=== PATIENT | male | born 1955 | race Caucasian/White ===

== ENCOUNTER → 2016-07-30 | Outpatient (CLI) | payer BC ==
[~2016-07-30] MED LIST: ASPI81TA28 PO; ATOR-22 PO; CLC100 PO; CLOP1TAB15 PO; METO50TA7 PO; MULT-506 PO; NTRGSL/4 UT; OXYC7.5T62 PO
--- NOTE | 2016-07-30 16:59 | DIAGNOSTIC IMAGING REPORT ---
MRI OF THE LUMBAR SPINE WITHOUT IV CONTRAST CLINICAL HISTORY: Low back pain. Recent fall. COMPARISON STUDY: Radiographs of the lumbar spine dated 05/25/2016. TECHNIQUE: MRI of the lumbar spine is performed utilizing various T1 and T2-weighted sequences in the axial and sagittal planes. IV contrast was not administered for this examination. FINDINGS: Lumbar spine: There is a mild superior endplate compression deformity of L3. There is mild marrow edema, and this is likely subacute as this was also seen on the 05/25/2016 examination. Vertebral body height is otherwise maintained throughout the lumbar spine. Marrow signal intensity is mildly heterogeneous. Alignment is preserved. There is straightening of the lumbar lordosis. The transverse and spinous processes are intact as imaged. There is no evidence of spondylolysis. A large hemangioma is noted in the body of L5. Chronic degenerative endplate change is seen at L2-L3, L4-L5, and L5-S1. Small anterior osteophytes are seen throughout. Intervertebral discs: Degenerative disc desiccation is seen throughout the lumbar spine. There is moderate to advanced loss of height at L5-S1. Only mild narrowing is seen at the remaining lumbar levels. Spinal cord: The visualized spinal cord is normal in morphology and signal intensity. The conus medullaris terminates at the level of L1. The nerve roots of the cauda equina are normal in morphology. L1-L2: Unremarkable. L2-L3: Unremarkable. L3-L4: There is minimal facet arthropathy of no consequence. The central canal and neural foramina are widely patent. L4-L5: There is minimal facet arthropathy of no consequence. The central canal and neural foramina are widely patent. L5-S1: There is minimal posterior disc bulge eccentric to the right. There is only minimal acquired compromise of the central canal at this level. The minimum AP diameter measures 8 mm. There is mild right-sided subarticular stenosis. The disc bulge abuts the transiting right S1 nerve root. Facet arthropathy causes minimal bilateral neural foraminal stenosis. Sacrum: Visualized sacrum is normal in morphology and signal intensity. A small hemangioma is noted in S3. Soft tissues: The paraspinous soft tissues are normal in appearance. There are two lesions suspected arising from the left kidney. IMPRESSION: 1. There is a mild superior endplate compression deformity of L3, likely subacute. Mild marrow edema is seen. No retropulsed fragments are identified. 2. There is no disc herniation or high-grade central canal stenosis. 3. A posterior disc bulge eccentric to the right at L5-S1 likely abuts the transiting right S1 nerve root. Mild spondylotic change is seen at additional levels. See above discussion for detailed level by level analysis. 4. There are two solid mass lesions suspected arising from the left kidney. Follow-up with a contrast-enhanced renal mass protocol abdominal CT is recommended for further assessment. Neoplasm is to be excluded. Dictated: 07/30/2016 4:19 PM Transcribed: 07/30/2016 4:58 PM [email or web address] Electronically signed by: John Anthony M.D. 07/30/2016 5:01 PM Dictated Date/Time: 07/30/2016 4:19 PM
== END | disposition home or self-care (01) ==
LOC: C.MRIBC 15:21
PROVIDERS: ATTEND Family Medicine
DX: M54.5 Low back pain (principal); W18.30XA Fall on same level, unspecified, initial encounter; S32.030A Wedge compression fracture of third lumbar vertebra, initial encounter for closed fracture; X58.XXXA Exposure to other specified factors, initial encounter

== ENCOUNTER → 2016-08-07 | Outpatient (CLI) | payer BC ==
[~2016-08-07] MED LIST changes: +OPTIRAY 320 IV PRN
--- NOTE | 2016-08-07 12:17 | DIAGNOSTIC IMAGING REPORT ---
CT KIDNEY (ABDOMEN) COMBO CLINICAL HISTORY: LEFT RENAL MASSES abnormal ultrasound TECHNIQUE: Transaxial acquisition with multi axial reformatted images. Study is performed in dynamic fashion pre and post intravenous contrast administration COMPARISON STUDY: MRI lumbar spine dated 07/30/2016 FINDINGS: 2 masses arising from the left kidney. Posterior to the superior pole is a mass measuring 3.5 x 4.0 cm. Hounsfield unit characteristics suggests significant postcontrast enhancement. His behavior is at variance with a surrounding renal parenchyma. There are no cystic components. At the lateral aspect of the interpolar aspect of the left kidney is a 2.8 cm exophytic mass. Density characteristics unenhanced demonstrate Hounsfield unit measurements of 40. This increases to 75-80 on the delayed images. There appear to be several enhancing internal septations and/or nodules. Kidneys otherwise demonstrate uniform enhancement characteristics. Renal arteries and renal veins are patent bilaterally. The adrenal glands are unremarkable. Liver enhances uniformly. Lung bases are clear. The bowel pattern within the abdomen nonobstructive throughout. There is no significant abdominal adenopathy. There is mild atherosclerotic change abdominal aorta as well as proximal iliac arterial vasculature. Lung bases again are clear. Liver enhances uniformly. Pancreas is unremarkable. The osseous structures show mild degenerative change. No lytic or blastic component is appreciated. IMPRESSION: 1. Enhancing masses of the upper and mid pole left kidney. 2. These are well circumscribed and measure 4 cm at maximum in reference to the superior pole lesion in 2.8 cm at the interpolar region. 3. Renal neoplastic changes at both sites is the diagnosis of exclusion. 4. Study is otherwise negative. Electronically signed by: Daniel Ndiaye M.D. 08/07/2016 12:16 PM Dictated Date/Time: 08/07/2016 12:09 PM
== END | disposition home or self-care (01) ==
LOC: C.CTS 11:36
PROVIDERS: ATTEND Family Medicine
DX: N28.89 Other specified disorders of kidney and ureter (principal); M54.5 Low back pain

== ENCOUNTER → 2016-08-14 | Outpatient (CLI) | payer BC ==
[~2016-08-14] MED LIST changes: -OPTIRAY 320 IV PRN
== END | disposition home or self-care (01) ==
LOC: C.LABSPEC 15:28
PROVIDERS: ATTEND Urology
DX: N28.89 Other specified disorders of kidney and ureter (principal)

== ENCOUNTER 2016-08-24 06:47 | Inpatient (IN) | payer BC ==
[2016-08-17 08:47] VITALS: BMI 32.0
--- NOTE | 2016-08-17 09:18 | PAT Medication Instructions ---
Service Date Aug 17, 2016. Current Home Medication List Aspirin (Aspirin Ec), 81 MG PO QAM Atorvastatin (Lipitor), 20 MG PO HS Clopidogrel (Plavix), 75 MG PO QAM Metoprolol Succ (Toprol Xl) (Toprol-Xl), 50 MG PO QAM Multivitamin (Multivitamin), 1 TAB PO PRN Nitroglycerin (Nitrostat), 0.4 MG UT PRN Medication Instructions For Your Scheduled Surgery - Check with surgeon/Dr. Perales for instructions: Aspirin (Aspirin Ec), 81 MG PO QAM Clopidogrel (Plavix), 75 MG PO QAM - Hold the following medications the morning of surgery: Multivitamin (Multivitamin), 1 TAB PO PRN - Take the following medications the morning of surgery with a sip of water: Nitroglycerin (Nitrostat), 0.4 MG UT PRN Metoprolol Succ (Toprol Xl) (Toprol-Xl), 50 MG PO QAM - Take the following medications as scheduled the night before surgery: Nitroglycerin (Nitrostat), 0.4 MG UT PRN Atorvastatin (Lipitor), 20 MG PO HS If you have any questions please call us at [phone] (Nallely Do PA-C) or [phone] or [phone]
--- NOTE | 2016-08-17 10:00 | DIAGNOSTIC IMAGING REPORT ---
CHEST PREADMISSION(PA/LAT) HISTORY: Preop. COMPARISON: Chest 09/23/2011. FINDINGS: The lungs are clear. Cardiac silhouette is normal in size. No pleural effusions. No pneumothorax. IMPRESSION: No acute process. Electronically signed by: Sung Del Toro M.D. 08/17/2016 9:58 AM Dictated Date/Time: 08/17/2016 9:57 AM
[2016-08-17 10:19] LABS: BASO % 0.9 %; BASO ABS # 0.05 K/uL (0-0.2); COMPLETE YES; EOS % 4.4 %; HEMATOCRIT 44.8 % (42-52); IG% 0.2 %; LYMPH % 20.6 %; LYMPH ABS # 1.11 K/uL (1.2-3.4); MEAN CELL VOLUME 87.7 fL (80-100); MEAN CORPUSCULAR HEMOGLOBIN 30.7 pg (25-34); MEAN PLATELET VOLUME 10.8 fL (7.4-10.4); MONO % 10.9 %; PLATELET COUNT 186 K/uL (130-400); RED BLOOD COUNT 5.11 M/uL (4.7-6.1)
[2016-08-17 10:35] LABS: BUN/CREATININE RATIO 20.9 (10-20); CALCIUM 9.2 mg/dl (8.5-10.1); CREATININE 0.85 mg/dl (0.60-1.40); POTASSIUM 4.7 mmol/L (3.5-5.1)
[2016-08-17 10:39] LABS: PROSTATE SPECIFIC ANTIGEN 1.97 ng/ml (0.000-4.000)
[~2016-08-24] VITALS: Ht 182.9 cm; Wt 106.0 kg
[2016-08-24] VITALS (13 sets, daily range): BP systolic 126–153; BP diastolic 58–84; PULSE 54–75; TEMP 36.5–36.8; O2SAT 93–99; Ht 182.9 cm; Wt 106.0 kg
[~2016-08-24 06:47] MED LIST changes: +CEFAZOLIN 2000 MG/60 ML D5W IV SCH; -CLC100 PO; +LACTATED RINGER'S 1000ML 1,000 ML IV SCH; -OXYC7.5T62 PO
[2016-08-24] MEDS ORDERED: BUPIVACAINE 0.5 % 5 MG/1 ML MPF 30ML VIAL ONE (07:50)
--- NOTE | 2016-08-24 08:00 | History & Physical Bridge Note ---
H&P Re-Evaluation Bridge Note: I have examined the patient, reviewed the History & Physical and in the interval since the performance of the History & Physical I have noted the following changes of clinical significance: No changes noted
[2016-08-24] MEDS ORDERED: EpHEDrine SULFATE INJ 50 MG/ML AMP ONE (08:19)
[2016-08-24] MEDS ORDERED: PHENYLEPHRINE HCL INJ 10 MG/ML VIAL ONE (08:19)
[2016-08-24] MEDS ORDERED: LIDOCAINE HCL 2% 2 ML VIAL (20MG/ML) ONE (08:19)
[2016-08-24] MEDS ORDERED: DEXAMETHASONE SOD INJ 4 MG/ML VIAL ONE ×2 (08:19→11:44)
[2016-08-24] MEDS ORDERED: SUCCINYLCHOLINE CHLORIDE 20 MG/ML 10 ML VIAL IV ONE (08:19)
[2016-08-24] MEDS ORDERED: ONDANSETRON INJ 2 MG/ML 2 ML VIAL ONE ×2 (08:19→11:44)
[2016-08-24] MEDS ORDERED: GLYCOPYRROLATE INJ 0.2 MG/ML VIAL ONE (08:20)
[2016-08-24] MEDS ORDERED: PROPOFOL IV EMULSION 10 MG/ML 20 ML VIAL IV ONE (08:20)
[2016-08-24] MEDS ORDERED: MIDAZOLAM HCL 1 MG/ML 2ML VIAL ONE (08:20)
[2016-08-24] MEDS ORDERED: NEOSTIGMINE METHYLSULFATE 5 MG/5 ML SYR ONE (08:20)
[2016-08-24] MEDS ORDERED: FENTANYL CITRATE INJ 50 MCG/1 ML 2 ML VIAL ONE (08:20)
[2016-08-24] MEDS ORDERED: ROCURONIUM BROMIDE 10 MG/ML 5 ML VIAL ONE ×2 (08:20→11:44)
[2016-08-24] MEDS ORDERED: LABETALOL HCL IV 5 MG/ML 20ML IV PRN ×2 (08:30→09:45)
[2016-08-24] MEDS ORDERED: MEPERIDINE HCL 25 MG/ML CARP IV PRN ×2 (08:30→09:45)
[2016-08-24] MEDS ORDERED: ONDANSETRON INJ 2 MG/ML 2 ML VIAL IV PRN ×2 (08:30→09:45)
[2016-08-24] MEDS ORDERED: ATROPINE SULFATE 0.1 MG/ML 5ML SYR IV PRN ×2 (08:30→09:45)
[2016-08-24] MEDS ORDERED: EpHEDrine SULFATE INJ 50 MG/ML AMP IV PRN ×2 (08:30→09:45)
[2016-08-24] MEDS ORDERED: HYDROmorphone INJ 1 MG/ML SYR IV PRN ×2 (08:30→09:45)
[2016-08-24] MEDS ORDERED: HYDROmorphone INJ 2 MG/ML SYR/VIAL ONE (09:28)
[2016-08-24] MEDS ORDERED: FENTANYL CITRATE INJ 50 MCG/1 ML 2 ML VIAL IV PRN (09:45)
[2016-08-24] MEDS ORDERED: ACETAMINOPHEN 1000 MG/100 ML IV IV ONE (10:02)
--- NOTE | 2016-08-24 11:34 | [facility] Post Operative Brief Note ---
Immediate Operative Summary Operative Date Aug 24, 2016. Pre-Operative Diagnosis Left Renal Masses x 2 Post-Operative Diagnosis Left Renal Masses x 2 Procedure(s) Performed Left Laparoscopic Hand-assisted Nephrectomy, Hilar Lymph Node Dissection Surgeon Dr. Chris Alexander Booth Operator Surgeon(s) Heaven Brooks-PAC Estimated Blood Loss 250 ML Findings Excellent hemostasis, single renal artery and vein Specimens A:Left kidney and ureter B:Hilar Mirtha Tissue Drains Romeo to gravity Anesthesia GAET + local Complication(s) None Disposition Recovery Room / PACU
[2016-08-24 11:59] LABS: HEMATOCRIT 37.2 % (42-52); MEAN CELL VOLUME 86.7 fL (80-100); MEAN CORPUSCULAR HEMOGLOBIN 30.3 pg (25-34); MEAN PLATELET VOLUME 10.6 fL (7.4-10.4); PLATELET COUNT 158 K/uL (130-400); RED BLOOD COUNT 4.29 M/uL (4.7-6.1); WHITE BLOOD COUNT 10.94 K/uL (4.8-10.8)
[2016-08-24] MEDS: FENTANYL CITRATE INJ 50 MCG/1 ML 2 ML VIAL IV PRN ×2 (12:00→12:05)
[2016-08-24 12:06] LABS: MEAN CORPUSCULAR HGB CONC 34.9 g/dl (32-36)
--- NOTE | 2016-08-24 12:22 | Anesthesiology Progress Note ---
Anesthesia Post Op Note Date & Time Aug 24, 2016 at 12:20 Vital Signs Pain Intensity: 4 Vital Signs Past 12 Hours Date Time Temp Pulse Resp B/P Pulse Ox O2 Delivery O2 Flow Rate FiO2 08/24/16 12:10 59 14 129/68 97 Nasal Cannula 2 08/24/16 12:00 64 14 135/72 100 Nasal Cannula 2 08/24/16 11:50 68 14 135/72 100 Mask 10 08/24/16 11:40 80 14 140/78 100 Mask 10 08/24/16 11:31 36.4 85 14 141/76 99 Mask 10 08/24/16 07:45 36.8 75 18 150/84 96 Room Air Notes Mental Status: alert / awake / arousable, participated in evaluation Pt Amnestic to Procedure: Yes Nausea / Vomiting: adequately controlled Pain: adequately controlled Airway Patency, RR, SpO2: stable & adequate BP & HR: stable & adequate Hydration State: stable & adequate Anesthetic Complications: no major complications apparent
[2016-08-24 13:22] LABS: BUN/CREATININE RATIO 16.4 (10-20); CALCIUM 7.8 mg/dl (8.5-10.1); CREATININE 0.89 mg/dl (0.60-1.40); POTASSIUM 4.1 mmol/L (3.5-5.1)
[2016-08-24] MEDS: HYDROmorphone INJ 1 MG/ML SYR IV PRN ×2 (13:54→17:38)
[2016-08-24] MEDS: LACTATED RINGER'S 1000ML 1,000 ML IV SCH ×2 (13:54→20:49)
--- NOTE | 2016-08-24 13:58 | OPERATIVE REPORT ---
DATE OF OPERATION: 08/24/2016 PREOPERATIVE DIAGNOSIS: Left renal masses x2. POSTOPERATIVE DIAGNOSIS: Same. PROCEDURE: Left-sided hand assisted laparoscopic radical nephrectomy and hilar lymph node dissection. SURGEON: Dr. Chris Alexander. SALES TEAM RECRUITER: None. ANESTHESIA: General anesthesia with endotracheal intubation plus local at port sites. COMPLICATIONS: None. SPECIMENS SENT TO PATHOLOGY: Left kidney plus proximal ureter, left hilar brando tissue. DRAINS LEFT IN PLACE: Include a Romeo catheter to gravity drainage. ESTIMATED BLOOD LOSS: 250 mL. IV FLUIDS: 3500 mL of crystalloid. FINDINGS: Excellent hemostasis after completion of case, single renal artery and vein with normal intraabdominal anatomy saved for some right retroperitoneal inflammation. COMPLICATIONS: None. BRIEF HISTORY: Mr. Gabriel is a 61-year-old male who underwent a lumbar MRI after a fall several months ago for which he had persistent pain. This demonstrated an incidentally found left-sided renal mass x2, both suspicious for an enhancing solid renal mass; therefore renal cell carcinoma. He underwent a duplicated renal CT scan which confirmed findings. I have seen him as an outpatient in consultation and after discussion of risks and benefits of various forms of intervention, he has decided upon a hand-assisted laparoscopic radical nephrectomy to manage his disease. Please see H\T\P for further details. SCDs used for DVT prophylaxis and Ancef 2 grams were provided intravenously for preoperative coverage. The patient has remained on low dose aspirin per his cardiology recommendations and the increased risk of bleeding associated with this surgery has been also reviewed seeing his ongoing antiplatelet therapy. OPERATION AND FINDINGS: PROCEDURE: The patient was properly identified and brought to the operative suite. After identification and appropriate consent on the chart, general anesthesia with endotracheal intubation was initiated and the patient was prepped and draped in standard fashion for this procedure. night time babysitter-out procedure was followed. All port sites were anesthetized with local prior to incision. The patient was placed in a gentle left flank up position with flexion on the table and all pressure points well padded. Pa incision was made in the left lower quadrant and brought down through the subcutaneous tissues to the fascia of the external oblique. This was sharply divided and abdomen was entered using cold Metzenbaum scissors with no evidence of any injury to the intraabdominal structures. Incision was enlarged sufficiently to allow for passage of the surgeon's finger and hand port was placed. The abdomen was insufflated to 15 mmHg and abdomen was inspected. There was some retroperitoneal and colonic inflammation, no worrisome intra-abdominal findings were noted. Two 12 mm ports were placed in the midclavicular line and the colon was released along the white line of Toldt. Lateral attachments of the spleen were also released to allow for mobilization to the retroperitoneum and the kidney. The psoas muscle was identified and the ureter was dissected free over the level of the psoas. Using lateral traction on the kidney medial dissection was carried out up to the level of a single renal artery and vein, both of which were palpated prior to clearing. After they were identified the artery and vein were taken using 2 separate staple loads. Lateral attachments of the kidney were divided using Harmonic scalpel. The staple loads were used at the level of the adrenal attachments to free the kidney. After this was complete, the ureter was double clipped and divided. Remaining caudad attachments were taken using a staple load. The kidney was removed and sent for pathologic analysis. Abdomen was reinspected and excellent hemostasis was appreciated. Attention was turned to the level of the hilum where a single stump for the renal artery and vein were noted. Some residual hilar fatty lymphoid tissue at the level of the aorta was visualized. This was dissected free from the aorta using clips and Harmonic as well as a staple loads were necessary. Renal artery was retaken where it traversed this tissue. After this was complete, the hilum at the level of the aorta was cleaned with no residual significant tissue. This was sent as hilar brando tissue for separate pathologic analysis. Attention was again turned to the surgical field, which was noted to have excellent hemostasis. A coating of Tisseel tissue sealant was placed over the spleen, adrenal bed, hilum and the area of the ureteral dissection. The intra-abdominal pressure had been reduced significantly prior to completion of this dissection with excellent hemostasis being noted. Colon and spleen were returned to their normal anatomic position. Ports and hand port were removed. Excess carbon dioxide gas was removed from the abdomen and the 12 mm incisions were closed using 0 Vicryl on a UR-6 in interrupted fashion. Hand port incision was closed in 2 phases after removal of flexion including 0 Vicryl suture on the deep tissues of the abdominal wall and a #1 running Vicryl suture on the fascia of the external oblique. Subcutaneous tissues were reapproximated using 3-0 Vicryl and skin incisions were closed using 4-0 Monocryl and Dermabond dressing. Anesthesia was reversed. The patient was transferred to recovery room in stable condition. FOLLOW-UP CARE: The patient will be admitted to the floor for standard postoperative management. I attest to the content of the Intraoperative Record and any orders documented therein. Any exceptions are noted below. ANTOINETTED
[2016-08-24] MEDS: OXYCODONE/ACETAMINOPHEN 7.5-325 TAB PO PRN ×2 (14:01→19:23)
[2016-08-24 14:23] LABS: INR 1.1 (0.9-1.1); PROTHROMBIN TIME (PATIENT) 11.4 SECONDS (9.0-12.0)
--- NOTE | 2016-08-24 15:48 | CARDIOLOGY CONSULTATION ---
DATE OF CONSULTATION: 08/24/2016 TIME: 15:12 p.m. CONSULTING PHYSICIAN: Dr. Chris Alexander. REASON FOR CONSULTATION: Prior myocardial infarction, on aspirin and Plavix. PRIMARY STATION AIR TRAFFIC CONTROL SPECIALIST: Dr. Ramez Pearles. HISTORY OF PRESENT ILLNESS: Mr. Gabriel is a pleasant 61-year-old gentleman with a history significant for LAD myocardial infarction in 2004 status post PCI and dyslipidemia. He presented for elective left nephrectomy for renal mass and is currently postop day #0. His angina in November 2004 was described as a chest tightness with diaphoresis. He stayed at home over the weekend before seeking medical care which eventually led to PCI of his LAD in [facility] in [place] in November of 2004. He has not had any further angina since his myocardial infarction. That was also the last cardiac catheterization that he has undergone. He has not had angina, syncope, near syncope, palpitations, orthopnea, PND, shortness of breath, edema, or bleeding such as melena, hematochezia or hematuria. He admits that he does not take aspirin on a daily basis but rather periodically. He is compliant with Plavix on a daily basis. As for the aspirin, he tries to avoid daily usage due to his history of Crohn disease, which has not required treatment. He has been holding Plavix for the past 7 days. He did take aspirin this morning, however. REVIEW OF SYSTEMS: As above and also admits to some abdominal discomfort postoperatively. Review of systems is otherwise negative. PAST MEDICAL HISTORY: 1. LAD VT November 2004, status post PCI. 2. Crohn's. 3. Dyslipidemia. 4. Seasonal affective disorder. 5. Left renal mass, pathology pending. HOME MEDICATIONS: Include: 1. Plavix 75 mg daily. 2. Aspirin 81 mg daily, however, he takes it intermittently. 3. Metoprolol succinate 50 mg daily. 4. Atorvastatin 20 mg at bedtime. 5. Multivitamin. 6. Nitroglycerin as needed. INPATIENT MEDICATIONS: Include cefazolin 2 grams IV q. 8 hours, heparin 5000 units subQ q. 12 hours. ALLERGIES: No known drug allergies. SOCIAL HISTORY: Quit smoking in 2004. Occasional alcohol. No drugs. He is . One child. He is accompanied in his hospital room. FAMILY HISTORY: Father at the age of 49 with myocardial infarction. PHYSICAL EXAMINATION: VITAL SIGNS: Temperature 36.5 degrees, heart rate 56 beats per minute, respiration rate 20, blood pressure 136/61 mmHg, oxygen saturation 99% on 2 liters per nasal cannula. Weight 106 kg. GENERAL: No acute distress. He is alert and oriented. HEENT: Anicteric sclerae. NECK: No appreciable JVD. Bilateral carotid bruits versus radiation of cardiac murmur. Normal carotid upstrokes bilaterally. CARDIAC: PMI nondisplaced. There was no ventricular heave, regular, normal S1, S2, 1/6 early peaking systolic ejection murmur best heard at the right upper sternal border. No rubs or gallops. LUNGS: Clear to auscultation bilaterally without wheezes, rales or rhonchi. ABDOMEN: Soft, nondistended. Mild tenderness. Hypoactive bowel sounds. Surgical wounds noted. No bleeding noted. No erythema. EXTREMITIES: No cyanosis or edema. 2+ radial pulses bilaterally. 2+ dorsalis pedis pulses bilaterally. PSYCHIATRIC: Affect appears appropriate. LABORATORY DATA: White blood cell count is 10.9, hemoglobin 13, Sodium 144, potassium 4.1, BUN 15, creatinine 0.89, calcium 7.8. INR 1.1. IMAGING DATA: Chest x-ray from 08/17/2016 without acute process, as per radiology. ECG 08/17/2016 personally reviewed. Sinus rhythm at 61 beats per minute. Possible anterior infarct. Inferior infarct. Outpatient chart reviewed. Telemetry was also personally reviewed. No arrhythmias. ASSESSMENT AND PLAN: 1. Coronary artery disease status post percutaneous coronary intervention: He had a left anterior descending artery myocardial infarction in 2004 and underwent left anterior descending artery percutaneous coronary intervention. No further angina since that time. He denies heart failure symptoms. As per Dr. Perales's outpatient recommendations, would continue aspirin 81 mg daily throughout the perioperative period. Resume Plavix 75 mg daily when safe from a surgical/bleeding standpoint. Continue statin therapy. Consider high intensity statin therapy. Continue beta refugio as tolerated. His home dose of metoprolol will be ordered to begin tomorrow. 2. Dyslipidemia: Continue statin therapy. Consider high intensity statin therapy given his history of coronary artery disease. 3. Carotid bruit: He does have the carotid bruit which could also be radiation of his cardiac murmur. This can be worked up as an outpatient. 4. Systolic murmur: He has an early peaking systolic ejection murmur which could represent aortic sclerosis or at most mild aortic stenosis, based on exam findings. This can be worked up as an outpatient as appropriate by Dr. Perales, his primary auto vinyl top installer. 5. Disposition: Dr. Perales will resume his cardiology care tomorrow. We will continue aspirin 81 mg daily as noted above. Please call for any other questions or concerns. Thank you for allowing me to participate in care of Mr. Gabriel. JEANETTE
[2016-08-24] MEDS ORDERED: NURSING VERBAL MED ORDER ONE (16:30)
[2016-08-24] MEDS: CEFAZOLIN IV 2,000 MG in DEXTROSE 5% 50ML 50 ML IV SCH (16:35)
[2016-08-24] MEDS ORDERED: SODIUM CHLORIDE 0.9% 500ML 500 ML IV ONE (16:45)
[2016-08-24] MEDS: HEPARIN SOD 5000 UNIT/0.5 ML CARP SQ SCH (19:39)
[2016-08-24] MEDS: ONDANSETRON INJ 2 MG/ML 2 ML VIAL IV PRN (20:41)
[2016-08-24] MEDS: ACETAMINOPHEN IV 100 ML IV PRN (20:41)
[2016-08-24] MEDS: DOCUSATE SODIUM 100 MG CAP PO SCH (20:42)
[2016-08-25 03:15] VITALS: BP 108/58; PULSE 62; TEMP 36.7; O2SAT 98
[2016-08-25] MEDS: ONDANSETRON INJ 2 MG/ML 2 ML VIAL IV PRN (03:56)
[2016-08-25 04:00] VITALS: O2SAT 95
[2016-08-25] MEDS: HYDROmorphone INJ 1 MG/ML SYR IV PRN ×5 (04:01→23:05)
[2016-08-25] MEDS: ACETAMINOPHEN IV 100 ML IV PRN (05:48)
[2016-08-25 05:56] LABS: BASO % 0.1 %; BASO ABS # 0.01 K/uL (0-0.2); COMPLETE YES; HEMATOCRIT 37.4 % (42-52); IG% 0.2 %; LYMPH ABS # 0.75 K/uL (1.2-3.4); MEAN CELL VOLUME 87.4 fL (80-100); MEAN CORPUSCULAR HEMOGLOBIN 29.7 pg (25-34); MEAN PLATELET VOLUME 10.5 fL (7.4-10.4); MONO % 13.8 %; NEUT % 78.9 %; PLATELET COUNT 165 K/uL (130-400); RED BLOOD COUNT 4.28 M/uL (4.7-6.1); WHITE BLOOD COUNT 10.72 K/uL (4.8-10.8)
[2016-08-25 06:24] LABS: BUN/CREATININE RATIO 11.3 (10-20); CALCIUM 7.6 mg/dl (8.5-10.1); CREATININE 1.4 mg/dl (0.60-1.40); POTASSIUM 4.2 mmol/L (3.5-5.1)
[2016-08-25 07:52] VITALS: BP 128/63; PULSE 68; TEMP 36.5; O2SAT 97
--- NOTE | 2016-08-25 07:57 | Anesthesiology Progress Note ---
Anesthesia Post Op Note Date & Time Aug 25, 2016 at 07:55 Vital Signs Pain Intensity: 5.0 Vital Signs Past 12 Hours Date Time Temp Pulse Resp B/P Pulse Ox O2 Delivery O2 Flow Rate FiO2 08/25/16 07:52 36.5 68 18 128/63 97 08/25/16 04:00 95 Room Air 2.0 08/25/16 03:15 36.7 62 18 108/58 98 Nasal Cannula 2.0 08/24/16 23:59 95 Room Air 2.0 08/24/16 23:15 36.7 66 18 126/58 98 Nasal Cannula 2.0 08/24/16 21:00 36.7 57 18 126/58 94 Room Air 08/24/16 20:00 95 Room Air 2.0 Notes Mental Status: alert / awake / arousable, participated in evaluation Pt Amnestic to Procedure: Yes Nausea / Vomiting: adequately controlled Pain: adequately controlled Airway Patency, RR, SpO2: stable & adequate BP & HR: stable & adequate Hydration State: stable & adequate Neuraxial Anesthesia: sensory block resolved Anesthetic Complications: no major complications apparent
[2016-08-25] MEDS: HEPARIN SOD 5000 UNIT/0.5 ML CARP SQ SCH ×2 (07:58→19:47)
[2016-08-25] MEDS: CEFAZOLIN IV 2,000 MG in DEXTROSE 5% 50ML 50 ML IV SCH ×3 (07:59)
[2016-08-25] MEDS: LACTATED RINGER'S 1000ML 1,000 ML IV SCH ×2 (07:59→17:05)
[2016-08-25] MEDS: DOCUSATE SODIUM 100 MG CAP PO SCH ×2 (08:00→19:45)
[2016-08-25] MEDS: ASPIRIN 81 MG ECTAB PO SCH (08:01)
[2016-08-25] MEDS: METOPROLOL SUCC 50MG EXT REL TAB PO SCH (08:01)
--- NOTE | 2016-08-25 08:43 | Progress Note ---
Subjective Date of Service: Aug 25, 2016. Subjective Pt evaluation today including: conversation w/ patient, physical exam, chart review, lab review, review of inpatient medication list Pain: Controlled with meds PO Intake: Mikie clears Voiding: crowell catheter in place (urine clear) 61 yo male POD#1 s/p L HALN for renal masses x 2. He denies OOB yet, mikie clears , no flatus yet. Pain controlled, acceptable downwards drift of Hb, expected bump in Cr noted. Remains on ASA and heparin SQ. Review of Systems Constitutional: No chills, No fever Eyes: No worsening of vision ENT: No hearing loss, No nasal symptoms Respiratory: No shortness of breath, No sputum, No wheezing Cardiac: No chest pain Abdomen: + pain, No nausea, No vomiting Male : No hematuria Neurologic: No memory loss, No paralysis Psychiatric: No depression symptoms Heme: No night sweats Skin: No new/changing skin lesions Objective Vital Signs Date Time Temp Pulse Resp B/P Pulse Ox O2 Delivery O2 Flow Rate FiO2 08/25/16 07:52 36.5 68 18 128/63 97 08/25/16 04:00 95 Room Air 2.0 08/25/16 03:15 36.7 62 18 108/58 98 Nasal Cannula 2.0 08/24/16 23:59 95 Room Air 2.0 08/24/16 23:15 36.7 66 18 126/58 98 Nasal Cannula 2.0 08/24/16 21:00 36.7 57 18 126/58 94 Room Air 08/24/16 20:00 95 Room Air 2.0 08/24/16 16:00 95 Room Air 2.0 08/24/16 15:26 36.5 61 16 132/60 95 Room Air 08/24/16 14:30 36.5 56 20 136/61 99 Nasal Cannula 2.0 08/24/16 14:00 36.5 57 20 141/67 99 Nasal Cannula 2.0 08/24/16 13:30 36.5 54 20 148/67 99 Nasal Cannula 2.0 08/24/16 13:00 36.5 54 20 153/70 93 Nasal Cannula 2.0 08/24/16 12:49 36.5 56 20 127/68 97 Nasal Cannula 2.0 08/24/16 12:45 36.5 55 20 127/68 95 Nasal Cannula 2.0 08/24/16 12:30 36.1 54 14 130/67 98 Nasal Cannula 2 08/24/16 12:20 36.1 55 14 130/69 97 Nasal Cannula 2 08/24/16 12:10 59 14 129/68 97 Nasal Cannula 2 08/24/16 12:00 64 14 135/72 100 Nasal Cannula 2 08/24/16 11:50 68 14 135/72 100 Mask 10 08/24/16 11:40 80 14 140/78 100 Mask 10 08/24/16 11:31 36.4 85 14 141/76 99 Mask 10 Physical Exam General Appearance: WD/WN, no apparent distress ENT: hearing grossly normal Neck: supple, no adenopathy Respiratory/Chest: no respiratory distress, no accessory muscle use Cardiovascular: no JVD Abdomen: non tender, soft, + pertinent finding (inc c/d/i with dermabond) Extremities: non-tender Neurologic/Psychiatric: alert, oriented x 3 Skin: normal color Laboratory Results Last 24 Hours Test 08/24/16 11:50 08/24/16 14:01 08/25/16 05:39 White Blood Count 10.94 K/uL 10.72 K/uL Red Blood Count 4.29 M/uL 4.28 M/uL Hemoglobin 13.0 g/dL 12.7 g/dL Hematocrit 37.2 % 37.4 % Mean Corpuscular Volume 86.7 fL 87.4 fL Mean Corpuscular Hemoglobin 30.3 pg 29.7 pg Mean Corpuscular Hemoglobin Concent 34.9 g/dl 34.0 g/dl RDW Standard Deviation 39.8 fL 40.2 fL RDW Coefficient of Variation 12.5 % 12.5 % Platelet Count 158 K/uL 165 K/uL Mean Platelet Volume 10.6 fL 10.5 fL Sodium Level 144 mmol/L 137 mmol/L Potassium Level 4.1 mmol/L 4.2 mmol/L Chloride Level 108 mmol/L 103 mmol/L Carbon Dioxide Level 27 mmol/L 29 mmol/L Anion Gap 9.0 mmol/L 5.0 mmol/L Blood Urea Nitrogen 15 mg/dl 16 mg/dl Creatinine 0.89 mg/dl 1.40 mg/dl Est Creatinine Clear Calc Drug Dose 106.9 ml/min 68.0 ml/min Estimated GFR () 105.5 61.5 Estimated GFR (Non- 91.0 53.1 BUN/Creatinine Ratio 16.4 11.3 Random Glucose 125 mg/dl 118 mg/dl Calcium Level 7.8 mg/dl 7.6 mg/dl Prothrombin Time 11.4 SECONDS Prothromb Time International Ratio 1.1 Neutrophils (%) (Auto) 78.9 % Lymphocytes (%) (Auto) 7.0 % Monocytes (%) (Auto) 13.8 % Eosinophils (%) (Auto) 0.0 % Basophils (%) (Auto) 0.1 % Neutrophils # (Auto) 8.46 K/uL Lymphocytes # (Auto) 0.75 K/uL Monocytes # (Auto) 1.48 K/uL Eosinophils # (Auto) 0.00 K/uL Basophils # (Auto) 0.01 K/uL Immature Granulocyte % (Auto) 0.2 % Immature Granulocyte # (Auto) 0.02 K/uL Assessment and Plan A/P 61 yo male POD#1 s/p L HALN Expected course. Ambulate in halls, increase diet and activity. Consider soft mechanical tonight if he does well with full liquids. Anticipate DC home tomorrow if doing well. Continued [facility] stay due to: inadequate oral pain control, voiding difficulties Discharge planning: home
--- NOTE | 2016-08-25 10:11 | CARDIOLOGY PROGRESS NOTE ---
DATE: 08/25/2016 SUBJECTIVE: Mr. Gabriel is resting comfortably in bed without complaints of chest pain or dyspnea. Postoperative pain is adequately controlled. OBJECTIVE: VITAL SIGNS: Blood pressure 128/63 with a regular pulse of 60. Respiratory rate is 18. The patient is afebrile at 36.5 degrees Celsius. Saturation is 97% on 2 liters nasal cannula. NECK: Supple with full carotid upstrokes. A carotid bruit noted on the right. Jugular venous pressure is flat at 90 degrees. There is no thyromegaly. CARDIOVASCULAR: Reveals a regular rhythm with a 1/6 systolic murmur heard along the left sternal border. No S3 or S4. LUNGS: Clear without rales, rhonchi, or wheezes. ABDOMEN: Soft, nontender without bruits. Surgical wounds are intact. EXTREMITIES: Reveal intact radial artery pulses bilaterally. There is no peripheral edema. DATA: CBC notes hemoglobin of 12.7, hematocrit 37.4, white count 10.7, and platelet count 165,000. Electrolytes note sodium of 137, potassium 4.2, chloride 103, bicarbonate 29, BUN 16, creatinine 1.4, glucose 118. threat monitoring analyst notes sinus rhythm. IMPRESSION AND PLAN: 1. Status post left nephrectomy -- per Dr. Alexander. 2. Coronary artery disease -- status post left anterior descending percutaneous coronary intervention, November 2004 and it has been stable on his current medical regimen. We will restart Plavix when able. He has been taking aspirin only intermittently. 3. Hypercholesterolemia -- continue atorvastatin. 4. Right carotid bruit -- we will check carotid ultrasound once recovered and as an outpatient. 5. Disposition -- stable for transfer off telemetry.
[2016-08-25 15:17] VITALS: BP 124/61; PULSE 72; TEMP 36.9; O2SAT 93
[2016-08-25] MEDS: OXYCODONE/ACETAMINOPHEN 7.5-325 TAB PO PRN ×2 (17:11→23:03)
[2016-08-26 00:16] VITALS: BP 128/70; PULSE 82; TEMP 36.9; O2SAT 93
[2016-08-26] MEDS: LACTATED RINGER'S 1000ML 1,000 ML IV SCH (01:54)
[2016-08-26 03:33] VITALS: BP 131/69; PULSE 93; TEMP 37.2; O2SAT 93
[2016-08-26] MEDS: OXYCODONE/ACETAMINOPHEN 7.5-325 TAB PO PRN (03:59)
[2016-08-26 06:18] LABS: BASO % 0.4 %; BASO ABS # 0.03 K/uL (0-0.2); COMPLETE YES; EOS % 1.2 %; HEMATOCRIT 37.3 % (42-52); IG% 0.1 %; LYMPH % 14.4 %; LYMPH ABS # 1.07 K/uL (1.2-3.4); MEAN CELL VOLUME 91.2 fL (80-100); MEAN CORPUSCULAR HEMOGLOBIN 30.1 pg (25-34); MEAN PLATELET VOLUME 11.2 fL (7.4-10.4); MONO % 13.6 %; NEUT % 70.3 %; PLATELET COUNT 150 K/uL (130-400); RED BLOOD COUNT 4.09 M/uL (4.7-6.1); WHITE BLOOD COUNT 7.45 K/uL (4.8-10.8)
[2016-08-26 06:55] LABS: BUN/CREATININE RATIO 8.7 (10-20); CALCIUM 7.9 mg/dl (8.5-10.1); CREATININE 1.3 mg/dl (0.60-1.40)
[2016-08-26] MEDS: ASPIRIN 81 MG ECTAB PO SCH (07:50)
[2016-08-26] MEDS: METOPROLOL SUCC 50MG EXT REL TAB PO SCH (07:50)
[2016-08-26] MEDS: DOCUSATE SODIUM 100 MG CAP PO SCH (07:50)
[2016-08-26] MEDS: HEPARIN SOD 5000 UNIT/0.5 ML CARP SQ SCH (07:54)
--- NOTE | 2016-08-26 08:19 | Progress Note ---
Subjective Date of Service: Aug 26, 2016. Subjective Pt evaluation today including: conversation w/ patient, chart review, lab review Voiding: no voiding problems 61 yo male s/p left HALN. Pt denies pain this morning. Denies n/v. Tolerating full liquids. Denies flatus or BM. He has not ambulated since last evening. Labs stable. Voiding clear, yellow urine. Review of Systems Constitutional: No chills, No fever Respiratory: No shortness of breath Cardiac: No chest pain Abdomen: No nausea, No pain, No vomiting Male : No dysuria, No hematuria Heme: No abnormal bleeding/bruising Objective Vital Signs Date Time Temp Pulse Resp B/P Pulse Ox O2 Delivery O2 Flow Rate FiO2 08/26/16 04:00 Nasal Cannula 2.0 08/26/16 03:33 37.2 93 21 131/69 93 Nasal Cannula 2.0 08/26/16 00:16 36.9 82 16 128/70 93 Room Air 08/26/16 00:01 Nasal Cannula 2.0 08/25/16 20:00 Nasal Cannula 2.0 08/25/16 16:00 Room Air 08/25/16 15:17 36.9 72 18 124/61 93 Room Air 08/25/16 12:00 Room Air Physical Exam General Appearance: no apparent distress Eyes: normal inspection ENT: hearing grossly normal Neck: no JVD Respiratory/Chest: no respiratory distress, no accessory muscle use Cardiovascular: no JVD Abdomen: + pertinent finding (abdominal incisions c/d/i) Extremities: normal inspection Neurologic/Psychiatric: alert, normal mood/affect, oriented x 3 Skin: normal color Laboratory Results Last 24 Hours Test 08/26/16 05:23 White Blood Count 7.45 K/uL Red Blood Count 4.09 M/uL Hemoglobin 12.3 g/dL Hematocrit 37.3 % Mean Corpuscular Volume 91.2 fL Mean Corpuscular Hemoglobin 30.1 pg Mean Corpuscular Hemoglobin Concent 33.0 g/dl Platelet Count 150 K/uL Mean Platelet Volume 11.2 fL Neutrophils (%) (Auto) 70.3 % Lymphocytes (%) (Auto) 14.4 % Monocytes (%) (Auto) 13.6 % Eosinophils (%) (Auto) 1.2 % Basophils (%) (Auto) 0.4 % Neutrophils # (Auto) 5.24 K/uL Lymphocytes # (Auto) 1.07 K/uL Monocytes # (Auto) 1.01 K/uL Eosinophils # (Auto) 0.09 K/uL Basophils # (Auto) 0.03 K/uL RDW Standard Deviation 43.3 fL RDW Coefficient of Variation 12.9 % Immature Granulocyte % (Auto) 0.1 % Immature Granulocyte # (Auto) 0.01 K/uL Sodium Level 140 mmol/L Potassium Level 4.0 mmol/L Chloride Level 103 mmol/L Carbon Dioxide Level 32 mmol/L Anion Gap 5.0 mmol/L Blood Urea Nitrogen 11 mg/dl Creatinine 1.30 mg/dl Est Creatinine Clear Calc Drug Dose 73.2 ml/min Estimated GFR () 67.3 Estimated GFR (Non- 58.1 BUN/Creatinine Ratio 8.7 Random Glucose 102 mg/dl Calcium Level 7.9 mg/dl Assessment and Plan POD # 2 s/p left HALN. AFVSS. Pt doing well clinically. Will advance to a mechanical soft diet for breakfast. Encourage ambulation to hallway. Hep lock IVF. Will transfer to med/surg this morning. Possible d/c home after lunch if tolerating PO, ambulating without difficulty, and pain controlled. Discharge planning: home
[2016-08-26 08:23] VITALS: BP 131/67; PULSE 82; TEMP 36.9; O2SAT 93
[2016-08-26] MEDS ORDERED: BISACODYL 10 MG SUPP PR STA (08:36)
[2016-08-26] MEDS ORDERED: CLC100 PO (08:43)
[2016-08-26] MEDS ORDERED: OXYC7.5T62 PO (08:43)
--- NOTE | 2016-08-26 08:47 | Discharge Instructions ---
Discharge Instructions Date of Service Aug 26, 2016. Admission Reason for Admission: Left Renal Mass Discharge Discharge Diagnosis / Problem: Left renal mass Discharge Goals Goal(s): Decrease discomfort, Improve function, Increase independence, Improve disease control, Improve nutritional status, Therapeutic intervention Activity Recommendations Activity Limitations: as noted below Shower/Bathe: tomorrow 1. Do not lift >15lbs x 6 weeks. 2. No heavy exercise x 6 weeks. You may engage in light activity such as walking and stairs as tolerated. 3. Do not drive x [address] while taking narcotics. 4. Follow-up as scheduled. Please call our office at [phone] if you need to reschedule for any reason. 5. You may resume taking your Plavix in 1 week. . . Current Hospital Diet Hospital Diet(s): Regular Diet Discharge Diet Recommended Diet: Regular Diet Procedures Procedures Performed: Left Laparoscopic Hand-assisted Nephrectomy, Hilar Lymph Node Dissection Pending Studies Studies pending at discharge: yes List of pending studies: renal pathology Medical Emergencies . Who to Call and When: Medical Emergencies: If at any time you feel your situation is an emergency, please call 911 immediately. . Non-Emergent Contact Non-Emergency issues call your: Urologist Call Non-Emergent contact if: temperature is above 101.5, your pain is not controlled, your pain is worsening, your pain is unusual for you, your pain is concerning you, you have any medication questions . . "Provider Documentation" section prepared by Heaven Brooks. . VTE Core Measure Inpt VTE Proph given/why not?: Unfractionated heparin SQ, SCD's [place] Drug Monitoring Program Search Results: patient reviewed within database, no issues identified
--- NOTE | 2016-08-26 09:45 | CARDIOLOGY PROGRESS NOTE ---
DATE: 08/26/2016 SUBJECTIVE: Mr. Gabriel is resting comfortably in bedside chair without complaints of chest pain or dyspnea. Has been ambulatory without difficulty. Anxious for hospital discharge. OBJECTIVE: VITAL SIGNS: Blood pressure 131/67 with a regular pulse of 82. Respiratory rate is 16. The patient is afebrile at 36.9 degrees Celsius. Saturation 93% on 2 liters nasal cannula. NECK: Supple with full carotid upstrokes. A quiet bruit noted on the right. Jugular venous pressure is flat at 90 degrees. There is no thyromegaly. CARDIOVASCULAR: Reveals a regular rhythm with normal S1 and S2. A 1/6 basal systolic ejection murmur is noted. LUNGS: Clear without rales, rhonchi or wheezes. ABDOMEN: Soft, nontender, without bruits. Surgical wounds are intact. EXTREMITIES: Reveal intact radial artery pulses bilaterally. There is no peripheral edema. DATA: CBC notes hemoglobin of 12.3, hematocrit 37.3, white count 7.4, platelet count 150,000. Electrolytes note sodium of 140, potassium 4.0, chloride 103, bicarb 32, BUN 11, creatinine 1.3, glucose 102. newborn hearing screener is benign. IMPRESSION AND PLAN: 1. Status post left nephrectomy -- per Dr. Alexander. 2. Coronary artery disease -- status post left anterior descending artery percutaneous coronary intervention in 11/2004. Has been stable on his current medical regimen. Restart Plavix when okay with the surgical team. His aspirin has been dosed intermittently. 3. Hypercholesterolemia -- continue atorvastatin. 4. Right carotid bruit -- will check a carotid ultrasound as an outpatient. 5. Disposition -- stable for transfer off telemetry or discharge to home from a cardiac perspective.
[2016-08-26] MEDS: ACETAMINOPHEN 500 MG TAB PO SCH ×2 (09:52→12:00)
[2016-08-26 12:16] VITALS: BP 107/67; PULSE 69; TEMP 36.7; O2SAT 91
[2016-08-26 14:22] VITALS: BP 107/67; PULSE 69; TEMP 36.7; O2SAT 91
--- NOTE | 2016-08-27 07:45 | DISCHARGE SUMMARY ---
ADMITTING DIAGNOSIS: Left renal masses x2. DISCHARGE DIAGNOSIS: Same. ADMITTING ATTENDING: Dr. Chris Alexander. PROCEDURES OVER THE COURSE OF ADMISSION: Include a left-sided hand assisted laparoscopic radical nephrectomy on 08/24/2016. COMPLICATIONS: None. BRIEF HISTORY: Mr. Gabriel is a pleasant 61-year-old male who has 2 incidentally found left renal masses both enhancing and suspicious for renal cell carcinoma. Please see H\T\P for further details. After discussion of risks and benefits of various forms of management of his disease we decided upon a left-sided hand assisted laparoscopic radical nephrectomy. Preoperative evaluation has been undergone and the patient is being admitted for this purpose. HOSPITAL COURSE: The patient was admitted on 08/24/2016 after an uncomplicated left-sided hand assisted laparoscopic radical nephrectomy. Please see operative report for further details. Over the course of the patient's postoperative course hemoglobin drifted downward slightly to 12 and creatinine peaked at 1.4 with some normalization prior to discharge home. The patient's diet and activity were slowly advanced over the course of his admission and patient was kept on telemetry seeing his history of aspirin use and cardiac disease. However, patient's admission was uncomplicated and by postoperative day #2, he was ambulating independently, tolerating an oral diet and comfortable on oral pain medications. He was considered stable for discharge home at this time. Please see progress notes for further details. DISCHARGE INSTRUCTIONS: Activity limitations x6 weeks reviewed with the patient. See discharge instruction list for medications and further details. Outpatient appointment is confirmed. The patient is instructed to contact our service should he note any fevers, chills, nausea, vomiting or other significant difficulties in the postoperative period.
--- NOTE | 2016-08-28 05:51 | EDITING REQUIRED CODING QUERY ---
PATHOLOGY To promote full compliance with coding requirements relating to patient care, physician participation is requested in all cases of crossing guard uncertainty. Please assist us with the question(s) below: Dr. Alexander, Please review the Pathology report and please document any relevant diagnosis(es) below: Diagnosis(es):Renal cell carcinoma Thank you for your time, TRUE Tolentino, JEWEL GRINDER
== END 2016-08-26 15:22 | disposition home or self-care (01) | DRG 657 ==
LOC: ENRESERVTM → ENRESERVDT → C.ACU 06:47 → C.2E 11:25
PROVIDERS: ADMIT Urology; ATTEND Urology
PROC: 07B70ZX Excision of Thorax Lymphatic, Open Approach, Diagnostic (ICD-10-PCS; principal; 2016-08-24 08:30)
PROC: 0TT10ZZ Resection of Left Kidney, Open Approach (ICD-10-PCS; principal; 2016-08-24 08:30)
PROC: 0TT70ZZ Resection of Left Ureter, Open Approach (ICD-10-PCS; principal; 2016-08-24 08:30)
DX: C64.2 Malignant neoplasm of left kidney, except renal pelvis (principal); K50.90 Crohn's disease, unspecified, without complications; I25.10 Atherosclerotic heart disease of native coronary artery without angina pectoris; R01.1 Cardiac murmur, unspecified; R09.89 Other specified symptoms and signs involving the circulatory and respiratory systems; E78.00 Pure hypercholesterolemia, unspecified; E78.5 Hyperlipidemia, unspecified; I25.2 Old myocardial infarction; E66.9 Obesity, unspecified; Z68.32 Body mass index [BMI] 32.0-32.9, adult; Z87.891 Personal history of nicotine dependence; Z95.5 Presence of coronary angioplasty implant and graft; Z79.02 Long term (current) use of antithrombotics/antiplatelets; Z79.82 Long term (current) use of aspirin; Z79.899 Other long term (current) drug therapy

== ENCOUNTER → 2017-08-12 | Outpatient (CLI) | payer OTHER ==
[~2017-08-12] MED LIST changes: -CEFAZOLIN 2000 MG/60 ML D5W IV SCH; +CLC100 PO; -CLOP1TAB15 PO; +GADAVIST IV PRN; -LACTATED RINGER'S 1000ML 1,000 ML IV SCH; -METO50TA7 PO; +METO50TA8 PO; +OXYC7.5T62 PO
--- NOTE | 2017-08-12 11:25 | DIAGNOSTIC IMAGING REPORT ---
CHEST 2 VIEWS ROUTINE CLINICAL HISTORY: Renal cell carcinoma. COMPARISON STUDY: Chest radiograph March 09, 2017. FINDINGS: Lung volumes are normal. Lungs are clear. No pulmonary nodules are identified although radiography is decreased sensitivity for detection of pulmonary nodules. There is no evidence for pulmonary edema. Cardiomediastinal silhouette is normal. IMPRESSION: 1. No acute cardiopulmonary findings. 2. No radiographic evidence of metastatic disease within the chest although decreased sensitivity for detection of pulmonary nodules. Electronically signed by: Glenn Quijano M.D. 08/12/2017 11:24 AM Dictated Date/Time: 08/12/2017 11:21 AM
[2017-08-12 12:27] LABS: ALBUMIN 3.7 gm/dl (3.4-5.0); ALT/SGPT 26 U/L (12-78); BLOOD UREA NITROGEN 26 mg/dl (7-18); CALCIUM 9.2 mg/dl (8.5-10.1); CARBON DIOXIDE 25 mmol/L (21-32); CREATININE 1.28 mg/dl (0.60-1.40); GLUCOSE 100 mg/dl (70-99); SODIUM 140 mmol/L (136-145)
[2017-08-12 12:32] LABS: ALKALINE PHOSPHATASE 30 U/L (45-117); AST/SGOT 16 U/L (15-37)
== END | disposition home or self-care (01) ==
LOC: C.RAD 10:24
PROVIDERS: ATTEND Urology
DX: C64.9 Malignant neoplasm of unspecified kidney, except renal pelvis (principal); N28.89 Other specified disorders of kidney and ureter

== ENCOUNTER → 2017-08-23 | Outpatient (CLI) | payer OTHER ==
[~2017-08-23] MED LIST changes: -GADAVIST IV PRN
--- NOTE | 2017-08-23 10:52 | DIAGNOSTIC IMAGING REPORT ---
MRI OF THE KIDNEYS WITHOUT A WITH GADOLINIUM CLINICAL HISTORY: N28.89 Renal mass, leftC64.9 Renal cell carcinoma TECHNIQUE: Imaging was performed in the axial and coronal planes before and after the administration of 10 cc of intravenous Gadavist. COMPARISON STUDY: CT scan performed August 07, 2016 FINDINGS: The left kidney is surgically absent. There are right renal parapelvic cysts. No solid renal masses are visualized on the right. There is no pathologic enhancement. There is no evidence of pathologic adenopathy. There are no adrenal masses. The visualized portions of the liver spleen and pancreas are unremarkable in appearance. IMPRESSION: 1. Interval left nephrectomy. No evidence of tumor recurrence. 2. No solid right renal masses identified. 3. No evidence of pathologic adenopathy Electronically signed by: Pieter García M.D. 08/23/2017 10:50 AM Dictated Date/Time: 08/23/2017 10:46 AM
== END | disposition home or self-care (01) ==
LOC: C.MRI 09:39
PROVIDERS: ATTEND Urology
DX: C64.9 Malignant neoplasm of unspecified kidney, except renal pelvis (principal); N28.89 Other specified disorders of kidney and ureter